=== PATIENT | male | born 1980 | race Two or more races ===

== ENCOUNTER 2017-06-24 12:27 | Emergency (ER) | payer OTHER ==
[~2017-06-24] VITALS: Ht 177.8 cm; Wt 110.9 kg
[2017-06-24 15:05] VITALS: BP 135/83
== END 2017-06-24 15:05 | disposition home or self-care (01) ==
LOC: ED 12:27
DX: L03.311 Cellulitis of abdominal wall (principal); I10 Essential (primary) hypertension
CPT/HCPCS: J0696